=== PATIENT | female | born 1980 | race Caucasian/White ===

== ENCOUNTER → 2016-11-16 | Outpatient (CLI) | payer SELFPAY ==
[~2016-11-16] MED LIST: ESCITALOPRAM OX10 MG PO; TRINESSA TABLE1 EACH PO; [UNRECOGNIZED DRUG - OTHER]
== END | disposition home or self-care (01) ==
LOC: CLAB 08:42
DX: E66.9 Obesity, unspecified (principal)
CPT/HCPCS: 36415; 86677

== ENCOUNTER → 2016-11-22 | Day surgery (SDC) | payer SELFPAY ==
--- NOTE | ~2016-11-22 | OR ---
Unit #: [id number]: [id number] Patient: NOREEN DA SILVA [id number] [address] [place], [place] [address] [id number] MR#: [id number] NAME: NOREEN DA SILVA ROOM: Date of Procedure: 11/22/2016 Admission Date: 11/22/2016 Surgeon: Geovanny Ramires III, M.D. : 1980 Attending Physician: Geovanny Ramires III, M.D. Primary Care Physician: Lisa Primary Care Physician PROCEDURE OPERATIVE NOTE PREOPERATIVE DIAGNOSIS Obesity. POSTOPERATIVE DIAGNOSIS Obesity. PROCEDURE PERFORMED Esophagogastroduodenoscopy in placement of intragastric [place]bera balloon. ANESTHESIA SMAC. SPECIMEN None. COMPLICATION None apparent. INDICATIONS FOR PROCEDURE This is a 36-year-old lady who has viewed our online intragastric balloon seminar. She is interested in this for weight loss purposes. She is here today for placement of the balloon and understands the risks and benefits of the procedure. DESCRIPTION OF PROCEDURE After consent was obtained, patient was brought to the endoscopy suite, placed in left lateral decubitus position. We titrated the above sedation and passed and EGD scope easily into the esophagus under direct visualization. She has normal peristalsis. I did not see any erosions or esophagitis and there was no hiatal hernia seen. The rest of the stomach appeared normal without any ulceration or masses. Pylorus was patent and the first and second portions of the duodenum appeared normal. I then carefully withdrew the scope. I then lubricated an intragastric balloon and passed into the esophagus under digital palpation. I was able to follow it on down into the stomach with the endoscope. Once I had it in the upper stomach I removed the guide wire and instilled it with 640 mL of saline. Once the balloon was to that capacity, I removed the catheter from the balloon, including all the attachments. The balloon was in good position in the upper stomach and I suctioned out the excess air within the stomach. I then carefully removed the scope. She tolerated the procedure without any problems and returned to the recovery room in stable condition. Unit #: [id number] #: [id number] Patient: NOREEN DA SILVA Dictated by... Geovanny Ramires III, M.D. VCL/erasto TD: 11/23/2016 07:07 JOB #: [id number] PROCEDURE OPERATIVE NOTE Page 1 of 1 X Geovanny Ramires III, MD X PROCEDURE OPERATIVE NOTE
== END | disposition home or self-care (01) ==
LOC: COPS 10:33
DX: E66.01 Morbid (severe) obesity due to excess calories (principal); Z68.30 Body mass index [BMI] 30.0-30.9, adult; Z88.0 Allergy status to penicillin; Z79.899 Other long term (current) drug therapy; Z90.89 Acquired absence of other organs; Z98.890 Other specified postprocedural states
CPT/HCPCS: 84703; J2250